=== PATIENT | female | born 1985 | race African-American/Black ===

== ENCOUNTER 2020-12-05 06:06 | Day surgery (SDC) | payer OTHER ==
[2020-12-03 18:15] VITALS: BMI 21.9
[2020-12-05] MEDS ORDERED: MIDAZOLAM HCL 2 MG/2 ML SINGLE DOSE VIAL ONE (07:15)
[2020-12-05] MEDS ORDERED: PROPOFOL 20 ML ONE ×2 (07:15→08:17)
[2020-12-05] MEDS ORDERED: LIDOCAINE HCL 2% (20ML MULTI-DOSE VIAL) ONE (07:19)
[2020-12-05] MEDS ORDERED: BUPIVACAINE HCL/PF 0.25% (2.5MG/ML) 10 ML VIAL ONE (07:19)
[2020-12-05] MEDS ORDERED: ceFAZolin SODIUM 1 GM VIAL ONE (07:59)
[2020-12-05] MEDS ORDERED: KETOROLAC TROMETHAMINE 30 MG/1 ML VIAL ONE (08:50)
[2020-12-05] MEDS ORDERED: ONDANSETRON 4 MG/2 ML VIAL ONE (08:50)
[2020-12-05 09:19] VITALS: TEMP 98.2
[2020-12-05 09:51] VITALS: BP 138/66; PULSE 72
== END 2020-12-05 10:30 | disposition home or self-care (01) ==
LOC: FASU 06:06
PROVIDERS: ATTEND Orthopaedic Surgery Sports Medicine
PROC: 0LBW0ZZ Excision of Left Foot Tendon, Open Approach (ICD-10-PCS; principal; 2020-12-05 08:00)
DX: M67.472 Ganglion, left ankle and foot (principal)
CPT/HCPCS: 81025; 88304-TC